=== PATIENT | male | born 1980 | race Caucasian/White ===

== ENCOUNTER → 2021-01-07 14:36 | Outpatient (CLI) | payer OTHER, SELFPAY ==
[2021-01-07 15:29] LABS: Absolute Neutrophil Count 6.9 X10^3/uL (2.0-7.7); Basophil# 0.03 X10^3/uL; Basophil% 0.3 % (0-1); Eosinophil# 0.17 X10^3/uL; Eosinophils% 1.6 % (0-5); Hematocrit 45.9 % (40-54); Hemoglobin 14.9 g/dL (13.0-16.5); Lymphocyte % 24.7 % (19-41); Mean Corp Hgb Conc 32.5 g/dL (32-36); Mean Corpuscular Hgb 30.2 pg (27.0-32.0); Mean Corpuscular Volume 93.1 fL (80-94); Mean Platelet Vol. 12.8 fl (6.2-12.0); Monocyte% 9.1 % (0-10); NRBC Flagged by Analyzer 0 % (0-5); Neutrophil # 6.94 X10^3/uL (2.7-7.7); Neutrophil % 63.4 % (47-70); Platelet Count 230 K/mm3 (150-450); RBC Distribution Width CV 13.2 % (11.6-14.6); RBC Distribution Width SD 45.2 fl (35.1-43.9); Red Blood Count 4.93 M/mm3 (4.6-6.2); White Blood Count 10.9 K/mm3 (4.4-11.0)
[2021-01-07 15:54] LABS: ALB/GLOB Ratio 0.9 RATIO (0.9-2.4); AST(SGOT) 19 U/L (15-37); Alanine Aminotransfer ALT/SGPT 35 U/L (16-61); Albumin, Serum 3.5 g/dL (3.2-5.0); Alkaline Phosphatase 86 U/L (45-117); Anion Gap 7 (5-15); BUN 12 mg/dL (7-18); BUN/Creat Ratio 12.7 RATIO (10-20); Calcium,Total 8.7 mg/dL (8.5-10.1); Chloride 104 mmol/L (98-107); Creatinine, Serum 0.94 mg/dL (0.70-1.30); EST Glomerular Filtration Rate 93 mL/min (>60); Est Glom Filt Rate - Afr Amer 113 mL/min (>60); Globulin 4.1 g/dL (2.2-4.2); Glucose 98 mg/dL (74-106); Potassium 3.9 mmol/L (3.5-5.1); Protein, Total 7.6 g/dL (6.4-8.2); Sodium Level 137 mmol/L (136-145); Thyroid Stim Hormone (TSH) 4.08 uIU/mL (0.358-3.74)
== END ==
PROVIDERS: PCP Family Medicine; Visit Provider Family Medicine
DX: R60.0 Localized edema (principal); R19.7 Diarrhea, unspecified; J45.909 Unspecified asthma, uncomplicated
CPT/HCPCS: 36415; 80053; 84443; 85025

== ENCOUNTER 2021-07-23 05:26 | Emergency (ER) | payer OTHER, SELFPAY ==
[2021-07-23 05:29] VITALS: BP 157/94; PULSE 92; RESP 24; TEMP 36.2; O2SAT 98; BMI 53.1
--- NOTE | 2021-07-23 05:42 | CT_ITS ---
EXAM: CT Lumbar Spine Without Intravenous Contrast CLINICAL INDICATION: 41 years old, Male; fall TECHNIQUE: Helically acquired images were obtained of the lumbar spine without intravenous contrast. 2D reformats were reviewed. This CT exam was performed using one or more of the following dose reduction techniques: automated exposure control, adjustment of the mA and/or kV according to patient size, and/or use of iterative reconstruction technique. This report was created using [employer] report generation technology. COMPARISON: None. FINDINGS: Vertebrae: Unremarkable. No fracture. No traumatic subluxation. No discrete lytic or blastic abnormality. Normal alignment. Discs/spinal canal/neural foramina: Unremarkable. Disc heights are preserved. No critical stenosis. Vasculature: Visualized abdominal aorta is not dilated. Lymph nodes: Unremarkable. No retroperitoneal adenopathy. CT/Spine Lumbar without Contrast IMPRESSION: No evidence of acute lumbar spinal fracture or spondylolisthesis. ASSESSMENT: NEGATIVE report - No abnormal findings. Electronically Signed: Minh Alvares MD at 7:00 EDT Tel , Service support ,
--- NOTE | 2021-07-23 05:42 | EX.ED.GENINJ ---
HPI History of Present Illness Chief Complaint: Back Informant: patient Onset/Context/Timing Onset: Today Mechanism/Context: Fall (Fall down 6 steps) Location: Lower back Current Severity: Moderate Maximum Severity: Moderate Associated Symptoms Associated Symptoms: Positive for Parasthesias (Mild tingling to right leg) Narrative Narrative: Patient presents secondary to low back pain after falling down steps this morning. He was getting ready for work. He went down the steps and his feet slipped out from underneath him. He went down approximately 6 steps on his back. Patient does report some pain going down his right leg with mild tingling. He reports back problems years ago that were fixed with physical therapy. He never required injections or surgeries. He is not on anticoagulants. [facility] Medical History Depression Hypothyroidism Home Medications bupropion HCl 150 mg PO DAILY 07/23/21 [History Last Taken Unknown] cyclobenzaprine 10 mg PO BID PRN #10 tab 07/23/21 [Rx Last Taken Unknown] escitalopram oxalate 20 mg PO QHS 07/23/21 [History Last Taken Unknown] levothyroxine 75 mcg PO DAILY 07/23/21 [History Last Taken Unknown] oxycodone-acetaminophen [Percocet] 1 tab PO Q6H PRN 3 Days #10 tab 07/23/21 [Rx Last Taken Unknown] Allergy/AdvReac Type Severity Reaction Status Date / Time ibuprofen AdvReac Other Verified 07/23/21 05:27 Surgical History H/O rotator cuff surgery Social History Smoking Status: Current every day smoker tobacco type: cigarettes ROS ROS ED Constitutional Constitutional ED: Denies chills or fever(s) Eyes Eyes: Denies change in vision ENT ENT ED: Denies sore throat Cardiovascular Cardiovascular: Denies chest pain Respiratory/Chest Respiratory/Chest: Denies cough or dyspnea Gastrointestinal Gastrointestinal: Denies abdominal pain, diarrhea, nausea or vomiting Genitourinary Genitourinary ED: Denies dysuria Musculoskeletal Musculoskeletal: Reports back pain Integumentary Denies rash Neurologic Neurologic: Reports paresthesias; Denies headache(s) or weakness Allergic/Immunologic Allergic/Immunologic ED: Denies urticaria EXAM Physical Exam Const Vital Signs: 07/23/21 05:29 Temperature 97.2 F L Temperature Source Temporal Pulse Rate 92 Respiratory Rate 24 H Blood Pressure 157/94 H Blood Pressure Mean 115 Pulse Ox 98 Oxygen Delivery Method Room Air Positive well nourished and well developed General Appearance ED: well developed Eyes EOMs intact bilaterally Chest Wall inspection of chest normal and palpation of chest normal Resp normal respiratory effort and clear to auscultation bilaterally Cardio regular rhythm Rate: regular rate GI normal to inspection, nondistended, normoactive bowel sounds Back/Spine Back/Spine Narrative: Tenderness of patient in the low lumbar region and over the right low lumbar paraspinals. Extremity Extremity Narrative: Strong distal pulses with normal sensation on testing. No focal neurologic deficits. Neuro oriented x3 Sensorium / Orientation: alert Skin no rashes or lesions noted MDM MDM MDM Narrative Medical decision making narrative: Patient was given oxycodone for pain. CT scan of the lumbar spine obtained. Radiography Diagnostic Testing: Radiology Impression Lumbar Spine CT 07/23/21 05:42 IMPRESSION: No evidence of acute lumbar spinal fracture or spondylolisthesis. ASSESSMENT: NEGATIVE report - No abnormal findings. Electronically Signed: Minh Alvares MD at 7:00 EDT Tel , Service support , Treatment and Re-Evaluation Comments:: CT reveals no evidence of fracture or subluxation. Patient be given prescription for Percocet and Flexeril. He has an allergy to NSAIDs which cause his kidneys to shut down. Patient did have interest in receiving Covid vaccine while here. First dose of Pfizer given in the emergency room. Discharge Plan Triage Chief Complaint: Back ED Provider: Betsy Thorpe Dx/Rx/DC Orders Clinical Impression: Back contusion, Sprain of low back Instructions: ED Back Sprain/Strain, ED Back Contusion Prescriptions: New oxycodone-acetaminophen [Percocet] 5-325 mg tablet 1 tab PO Q6H PRN (Reason: pain) 3 Days Qty: 10 RF: 0 cyclobenzaprine 10 mg tablet 10 mg PO BID PRN (Reason: muscle spasm) Qty: 10 RF: 0 No Action bupropion HCl 150 mg tablet sustained-release 12 hr 150 mg PO DAILY RF: 0 levothyroxine 75 mcg tablet 75 mcg PO DAILY RF: 0 escitalopram oxalate 20 mg tablet 20 mg PO QHS RF: 0 Stand Alone Forms: ED Work / School Excuse Primary Care Provider: Alisha Elaine Referrals: Alisha Elaine MD [Primary Care Provider] - 1 Week if not improving Disposition Disposition: Home, Self Care
[2021-07-23] MEDS: oxyCODONE 5 MG Tablet 10 MG PO (06:09)
[2021-07-23] MEDS: COVID-19 VACC, MRNA(PFIZER)/PF 30 MCG/0.3 ML SYRINGE IM (08:14)
[2021-07-23 08:27] VITALS: PULSE 88; RESP 18; O2SAT 97
== END 2021-07-23 08:28 | disposition home or self-care (01) ==
PROVIDERS: Emergency Provider Emergency Medicine; PCP Family Medicine
DX: S30.0XXA Contusion of lower back and pelvis, initial encounter (principal); S33.9XXA Sprain of unspecified parts of lumbar spine and pelvis, initial encounter; W10.9XXA Fall (on) (from) unspecified stairs and steps, initial encounter; E03.9 Hypothyroidism, unspecified; F32.9 Major depressive disorder, single episode, unspecified; F17.210 Nicotine dependence, cigarettes, uncomplicated; Z79.1 Long term (current) use of non-steroidal anti-inflammatories (NSAID); Z79.899 Other long term (current) drug therapy; Z88.6 Allergy status to analgesic agent; Z23 Encounter for immunization
CPT/HCPCS: 72131; 91300; 99283

== ENCOUNTER 2021-08-25 18:20 | Emergency (ER) | payer OTHER, SELFPAY ==
[2021-08-25 18:21] VITALS: BP 141/100; PULSE 96; RESP 18; TEMP 36.1; O2SAT 96; BMI 48.6
--- NOTE | 2021-08-25 18:31 | ED.RN ---
pt had previously been prescribed muscle relaxer and anti imflamatory, worked until pt went back to work. now medications not working.
--- NOTE | 2021-08-25 18:46 | ED.VIS.BACK ---
HPI History of Present Illness Chief Complaint: Back Narrative Narrative: Patient presented with lower back pain. He states that this initially started hurting him about a month ago when he fell. He was seen at [place] [facility] and had a CT scan of his back which was normal. He was discharged home with Flexeril, Percocet. He takes meloxicam on a regular basis already. He has an allergy to ibuprofen but not other NSAIDs that he knows of. Patient denies any loss of bladder or bowel control. He denies urinary tension. He states is difficult to ambulate secondary to pain. He states he initially started to get better and then went back to work and does a lot of bending and that is when he noted that his back started to hurt again. [facility] Medical History Depression Hypothyroidism Home Medications bupropion HCl 150 mg PO DAILY 07/23/21 [History Last Taken Unknown] cyclobenzaprine 10 mg PO BID PRN #10 tab 07/23/21 [Rx Last Taken Unknown] escitalopram oxalate 20 mg PO QHS 07/23/21 [History Last Taken Unknown] levothyroxine 75 mcg PO DAILY 07/23/21 [History Last Taken Unknown] oxycodone-acetaminophen [Percocet] 1 tab PO Q6H PRN 3 Days #10 tab 07/23/21 [Rx Last Taken Unknown] Allergy/AdvReac Type Severity Reaction Status Date / Time ibuprofen AdvReac Other Verified 08/25/21 18:23 Surgical History H/O rotator cuff surgery Social History Smoking Status: Current every day smoker tobacco type: cigarettes ROS ROS ED Constitutional Constitutional ED: Denies chills, fever(s) or sweats Eyes Eyes: Denies blurry vision or change in vision ENT ENT ED: Denies ear pain or sore throat Cardiovascular Cardiovascular: Denies chest pain, palpitations or racing heartbeat Respiratory/Chest Respiratory/Chest: Denies cough, dyspnea or sputum Gastrointestinal Gastrointestinal: Denies abdominal pain, constipation, diarrhea, nausea or vomiting Genitourinary Genitourinary ED: Denies dysuria, hematuria or urinary frequency Musculoskeletal Musculoskeletal: Reports back pain; Denies arthralgias, myalgias or neck pain Integumentary Denies abscess, Abrasions or rash Neurologic Neurologic: Denies headache(s), paresthesias or weakness Psychiatric Psychiatric: Denies anxiety, depression, suicidal ideation or suicidal thoughts Endocrine Endocrinology: Denies polydipsia or polyuria EXAM Physical Exam Const Vital Signs: 08/25/21 18:21 Temperature 96.9 F L Temperature Source Temporal Pulse Rate 96 Respiratory Rate 18 Blood Pressure 141/100 H Blood Pressure Mean 113 Pulse Ox 96 Oxygen Delivery Method Room Air Positive obese General Appearance ED: NAD; Negative for pallor Nutritional Appearance: obese HEENT Reports moist mucous membranes Negative for trauma Eyes PERRL and EOMs intact bilaterally Back/Spine Back/Spine Narrative: Right lumbar paraspinal muscular tenderness. No midline spinal tenderness or deformity. Extremity normal to inspection General Extremety ED: Negative for edema or tenderness General Extremity: Negative for edema Neuro oriented x3 Sensorium / Orientation: alert Psych mental status grossly normal Skin no rashes or lesions noted General Skin Exam: Negative for jaundice or pallor MDM MDM MDM Narrative Medical decision making narrative: Patient requesting a shot of Toradol which will be provided. I will also give him a burst of prednisone to help with his back. He has muscle relaxers already. He is also on meloxicam. He does not have any signs or symptoms of cauda equina syndrome. I do not believe he needs repeat imaging as he has not had any new trauma. I encouraged him to follow-up with his primary care physician so that he get into physical therapy and see if this helps him. Patient will be discharged home in stable condition. Impression: 1. Lumbar strain Discharge Plan Triage Chief Complaint: Back ED Provider: Flavio Levine Dx/Rx/DC Orders Prescriptions: No Action bupropion HCl 150 mg tablet sustained-release 12 hr 150 mg PO DAILY RF: 0 levothyroxine 75 mcg tablet 75 mcg PO DAILY RF: 0 escitalopram oxalate 20 mg tablet 20 mg PO QHS RF: 0 oxycodone-acetaminophen [Percocet] 5-325 mg tablet 1 tab PO Q6H PRN (Reason: pain) 3 Days Qty: 10 RF: 0 cyclobenzaprine 10 mg tablet 10 mg PO BID PRN (Reason: muscle spasm) Qty: 10 RF: 0 Primary Care Provider: Alisha Elaine
[2021-08-25] MEDS: predniSONE 20 MG Tablet 60 MG PO (18:55)
[2021-08-25] MEDS: Ketorolac 15 MG/ML Vial IM (18:56)
== END 2021-08-25 20:53 | disposition home or self-care (01) ==
LOC: ED 18:55
PROVIDERS: Emergency Provider Student in an Organized Health Care Education/Training Program; PCP Family Medicine
DX: S39.012A Strain of muscle, fascia and tendon of lower back, initial encounter (principal); X50.1XXA Overexertion from prolonged static or awkward postures, initial encounter; Y92.9 Unspecified place or not applicable; Y99.9 Unspecified external cause status; Z88.6 Allergy status to analgesic agent; E03.9 Hypothyroidism, unspecified; F17.210 Nicotine dependence, cigarettes, uncomplicated; F32.9 Major depressive disorder, single episode, unspecified; Z79.1 Long term (current) use of non-steroidal anti-inflammatories (NSAID); Z91.81 History of falling
CPT/HCPCS: 96372; 99283

== ENCOUNTER 2022-06-23 08:40 | Emergency (ER) | payer OTHER, SELFPAY ==
[2022-06-23 08:43] VITALS: BP 156/105; PULSE 78; RESP 17; TEMP 35.9; O2SAT 99; BMI 64.7
--- NOTE | 2022-06-23 08:49 | NURSING ---
NO OLD EKGS
--- NOTE | 2022-06-23 09:06 | EKG12_ITS ---
Test Reason : CP Blood Pressure : / mmHG Vent. Rate : 077 BPM Atrial Rate : 077 BPM P-R Int : 156 ms QRS Dur : 098 ms QT Int : 400 ms P-R-T Axes : 020 -15 028 degrees QTc Int : 452 ms Normal sinus rhythm Normal ECG Confirmed by NADIA JOHNSON, LUIS MIGUEL ([id number]), film editor ANGIE MANNING ([id number]) on 06/27/2022 9:26:50 AM Referred By: AGUSTÍN Confirmed By:GIGI ZUNIGA MD
--- NOTE | 2022-06-23 09:06 | RAD_ITS ---
STUDY: X-RAY CHEST REASON FOR EXAM: Male, 42 years old. Chest pain TECHNIQUE: Single AP portable view of the chest. COMPARISON: None. FINDINGS: EKG electrodes are seen. The lungs are clear and expanded. There is no demonstrated pleural abnormality. Normal size heart. Normal mediastinum and brandy. Normal visualized pulmonary arteries. Normal visualized aortic arch and descending thoracic aorta. Normal visualized thoracic spine. Normal visualized ribs, clavicles, and shoulders. There is no demonstrated abnormality of the visualized soft tissue structures of the upper abdomen. RAD/Chest 1 View (Portable) IMPRESSION: Normal x-ray examination of the chest. Electronically Signed: Guy Olmedo MD at 9:46 EDT ,
--- NOTE | 2022-06-23 09:07 | ED.VIS.CHEST ---
HPI History of Present Illness Chief Complaint: Back Narrative Narrative: 42-year-old male presenting with chest pain and upper back pain. He states that last evening he was drying himself off with a towel and felt a pop behind his left shoulder. He states that it initially hurt just in the left shoulder blade area but when he woke up this morning he had pain that radiated up into the anterior chest and down his arm. He states he has some numbness in his left arm which is not new and he always has this. He took Flexeril last night without relief. He took Tylenol at home but cannot take ibuprofen due to allergies. He states that shot sounds in his kidney. He states he is not short of breath or lightheaded but he does notice that the pain increases in the left scapular region when he takes a deep breath. He does not have any history of DVT/PE and does not have any current risk factors. He denies any cardiac history. [facility] Medical History Depression Hypothyroidism Home Medications bupropion HCl 150 mg tablet,12 hr sustained-release 150 mg PO DAILY 07/23/21 [History Last Taken Unknown] cyclobenzaprine 10 mg tablet 10 mg PO BID PRN muscle spasm #10 tabs 07/23/21 [Rx Last Taken Unknown] escitalopram oxalate 20 mg tablet 20 mg PO QHS 07/23/21 [History Last Taken Unknown] levothyroxine 75 mcg tablet 75 mcg PO DAILY 07/23/21 [History Last Taken Unknown] albuterol sulfate 90 mcg/actuation aerosol inhaler 1 - 2 puff inhalation Q4H PRN sob 06/23/22 [History Last Taken Unknown] gabapentin 300 mg capsule 300 mg PO TID PRN Pain 06/23/22 [History Last Taken Unknown] tizanidine 4 mg capsule (Zanaflex) 4 mg PO Q8H PRN muscle spasticity #20 caps 06/23/22 [Rx Last Taken Unknown] Allergy/AdvReac Type Severity Reaction Status Date / Time ibuprofen AdvReac Other Verified 06/23/22 08:41 Surgical History H/O rotator cuff surgery Social History Smoking Status: Current every day smoker tobacco type: cigarettes ROS ROS ED Constitutional Constitutional ED: Denies chills or fever(s) Eyes Eyes: Denies change in vision ENT ENT ED: Denies rhinorrhea or sore throat Cardiovascular Cardiovascular: Reports as per HPI Respiratory/Chest Respiratory/Chest: Denies cough or dyspnea Gastrointestinal Gastrointestinal: Denies abdominal pain or constipation Genitourinary Genitourinary ED: Denies dysuria or hematuria Musculoskeletal Musculoskeletal: Reports back pain Integumentary Denies abscess Neurologic Neurologic: Denies headache(s) Psychiatric Psychiatric: Denies anxiety or depression EXAM Physical Exam Const Vital Signs: 06/23/22 08:43 06/23/22 08:52 06/23/22 09:29 Temperature 96.7 F L Temperature Source Temporal Pulse Rate 78 Respiratory Rate 17 Respiratory Pattern Normal Blood Pressure 156/105 H Blood Pressure Mean 122 Pulse Ox 99 Oxygen Delivery Method Room Air Room Air Positive well nourished and obese General Appearance ED: NAD Nutritional Appearance: obese HEENT Reports moist mucous membranes Eyes PERRL and EOMs intact bilaterally Resp normal respiratory effort and clear to auscultation bilaterally Cardio regular rate and regular rhythm GI normal to inspection, nondistended, normoactive bowel sounds Back/Spine no CVA tenderness Back/Spine Narrative: tenderness to palpation the left medal scapular region. No thoracic spinal tenderness. Left shoulder nontender. Neuro oriented x3 and CN's II-XII intact bilaterally Sensorium / Orientation: awake Psych mental status grossly normal Skin no rashes or lesions noted Heart Score History: Slightly/Non-Suspicious ECG: Normal Age: </= 45 years Risk Factors: No Risk Factors Troponin: </= Normal Limit Score: 0 MDM MDM MDM Narrative Medical decision making narrative: 42-year-old male presenting with atypical chest pain. This really started in the left scapular region and radiated around last night. This started when he was drying himself off with a towel and he felt a pop. On physical exam is reproducible in the medial scapular area. Since it is now in his chest he does have concern for cardiac related chest pain. He had pain all night long and his EKG is normal sinus rhythm with a ventricular rate of 77 bpm without sign of ischemic change interpretation. Chest x-ray on my interpretation shows no acute cardiopulmonary process and the radiologist agree. CBC and BMP are unremarkable. High-sensitivity troponin is 7 after over 12 hours of pain and I do not think he needs a delta troponin. He is PERC negative. Patient was treated with Toradol and Norflex in ED. He will be given a prescription for muscle relaxers for home. He will follow-up with his primary care physician as needed and return precautions were discussed. Impression: 1. Thoracic strain 2. Atypical chest pain Lab Data Attestation: I reviewed the patient's lab results. Labs: Laboratory Results - last 24 hr 06/23/22 06/23/22 09:14 09:14 WBC 6.4 RBC 4.53 L Hgb 14.5 Hct 42.7 MCV 94.3 H MCH 32.0 MCHC 34.0 RDW Std Deviation 47.3 H RDW Coeff of Donnie 13.6 Plt Count 207 MPV 12.7 H Immature Gran % (Auto) 0.300 Neut % (Auto) 58.5 Lymph % (Auto) 29.4 [place] % (Auto) 9.0 Eos % (Auto) 2.5 Baso % (Auto) 0.3 Absolute Neuts (auto) 3.8 Absolute Lymphs (auto) 1.89 Nucleated RBC % 0 Sodium 140 Potassium 4.0 Chloride 109 H Carbon Dioxide 28.0 Anion Gap 3 L BUN 10 Creatinine 0.95 Estim Creat Clear Calc 93.74 Est GFR (MDRD) Af Amer 112 Est GFR (MDRD) Non-Af 92 BUN/Creatinine Ratio 10.6 Glucose 104 Calcium 8.2 L Troponin I High Sens 7 Radiography Diagnostic Testing: Clinical Impression(s) from Imaging Studies Chest X-Ray 06/23/22 09:06 IMPRESSION: Normal x-ray examination of the chest. Electronically Signed: Guy Olmedo MD at 9:46 EDT , Discharge Plan Triage Chief Complaint: Back ED Provider: Flavio Levine Dx/Rx/DC Orders Instructions: ED Chest Pain, Noncardiac, ED Thoracic Spine Strain Prescriptions: New tizanidine [Zanaflex] 4 mg capsule 4 mg PO Q8H PRN (Reason: muscle spasticity) Qty: 20 0RF No Action bupropion HCl 150 mg tablet sustained-release 12 hr 150 mg PO DAILY levothyroxine 75 mcg tablet 75 mcg PO DAILY escitalopram oxalate 20 mg tablet 20 mg PO QHS cyclobenzaprine 10 mg tablet 10 mg PO BID PRN (Reason: muscle spasm) Qty: 10 0RF gabapentin 300 mg capsule 300 mg PO TID PRN (Reason: Pain) Label Comments: TAKE 1 CAPSULE BY MOUTH THREE TIMES DAILY NEEDED FOR BACK PAIN albuterol sulfate 90 mcg/actuation HFA aerosol inhaler 1 - 2 puff INHALATION Q4H PRN (Reason: sob) Primary Care Provider: Alisha Elaine Referrals: Alisha Elaine MD [Primary Care Provider] - Disposition Disposition: Home, Self Care
[2022-06-23] MEDS: Ketorolac 15 MG/ML Vial IV (09:21)
[2022-06-23] MEDS: Orphenadrine 60 MG/2 ML Ampul IM (09:23)
[2022-06-23 09:28] LABS: Absolute Lymphocyte Count 1.89 X10^3/uL (0.83-4.51); Absolute Neutrophil Count 3.8 X10^3/uL (2.0-7.7); Basophil# 0.02 X10^3/uL; Basophil% 0.3 % (0-1); Eosinophil# 0.16 X10^3/uL; Eosinophils% 2.5 % (0-5); Hematocrit 42.7 % (40-54); Hemoglobin 14.5 g/dL (13.0-16.5); Lymphocyte # 1.89 X10^3/ul (0.83-4.51); Lymphocyte % 29.4 % (19-41); Mean Corpuscular Volume 94.3 fL (80-94); Mean Platelet Vol. 12.7 fl (6.2-12.0); Monocyte# 0.58 X10^3/uL; NRBC Flagged by Analyzer 0 % (0-5); Neutrophil # 3.75 X10^3/uL (2.7-7.7); Neutrophil % 58.5 % (47-70); Platelet Count 207 K/mm3 (150-450); RBC Distribution Width CV 13.6 % (11.6-14.6); RBC Distribution Width SD 47.3 fl (35.1-43.9); Red Blood Count 4.53 M/mm3 (4.6-6.2); White Blood Count 6.4 K/mm3 (4.4-11.0)
[2022-06-23 09:42] LABS: Anion Gap 3 (5-15); BUN 10 mg/dL (7-18); BUN/Creat Ratio 10.6 RATIO (10-20); Calcium,Total 8.2 mg/dL (8.5-10.1); Chloride 109 mmol/L (98-107); Creatinine, Serum 0.95 mg/dL (0.70-1.30); EST Glomerular Filtration Rate 92 mL/min (>60); Est Glom Filt Rate - Afr Amer 112 mL/min (>60); Estimated Creatinine Clearance 93.74 ml/min; Glucose 104 mg/dL (74-106); Sodium Level 140 mmol/L (136-145); Troponin-I HS (w/2H Reflex) 7 pg/mL (3.0-78.0)
[2022-06-23 11:19] LABS: Reflex Troponin-HS? (from REC) Y
== END 2022-06-23 10:20 | disposition home or self-care (01) ==
PROVIDERS: Emergency Provider Student in an Organized Health Care Education/Training Program; PCP Family Medicine; Visit Provider Student in an Organized Health Care Education/Training Program
DX: R07.89 Other chest pain (principal); I82.409 Acute embolism and thrombosis of unspecified deep veins of unspecified lower extremity; S29.019A Strain of muscle and tendon of unspecified wall of thorax, initial encounter; M25.512 Pain in left shoulder; M54.9 Dorsalgia, unspecified; F17.210 Nicotine dependence, cigarettes, uncomplicated; F32.A Depression, unspecified; E03.9 Hypothyroidism, unspecified
CPT/HCPCS: 71045; 80048; 84484; 85025; 93005; 99283; A4216

== ENCOUNTER 2022-10-06 10:04 | Emergency (ER) | payer OTHER, SELFPAY ==
[2022-10-06 10:05] VITALS: BP 182/151; PULSE 71; RESP 18; TEMP 35.6; O2SAT 97; BMI 47.0
[2022-10-06 10:54] LABS: Absolute Lymphocyte Count 1.74 X10^3/uL (0.83-4.51); Absolute Neutrophil Count 3.8 X10^3/uL (2.0-7.7); Basophil# 0.03 X10^3/uL; Basophil% 0.5 % (0-1); Eosinophil# 0.18 X10^3/uL; Eosinophils% 2.8 % (0-5); Hematocrit 41.5 % (40-54); Hemoglobin 13.7 g/dL (13.0-16.5); Lymphocyte # 1.74 X10^3/ul (0.83-4.51); Lymphocyte % 27.2 % (19-41); Mean Corpuscular Hgb 30.4 pg (27.0-32.0); Mean Corpuscular Volume 92.2 fL (80-94); Mean Platelet Vol. 13.4 fl (6.2-12.0); Monocyte# 0.64 X10^3/uL; NRBC Flagged by Analyzer 0 % (0-5); Neutrophil # 3.78 X10^3/uL (2.7-7.7); Neutrophil % 59.2 % (47-70); Platelet Count 170 K/mm3 (150-450); RBC Distribution Width CV 14.1 % (11.6-14.6); RBC Distribution Width SD 47.9 fl (35.1-43.9); White Blood Count 6.4 K/mm3 (4.4-11.0)
[2022-10-06 11:07] LABS: AST(SGOT) 17 U/L (15-37); Alanine Aminotransfer ALT/SGPT 34 U/L (16-61); Albumin, Serum 3.2 g/dL (3.2-5.0); Alkaline Phosphatase 84 U/L (45-117); Anion Gap 4 (5-15); BUN 14 mg/dL (7-18); BUN/Creat Ratio 16.7 RATIO (10-20); Bilirubin, Direct 0.08 mg/dL (0.00-0.30); Calcium,Total 8.4 mg/dL (8.5-10.1); Chloride 110 mmol/L (98-107); Creatinine, Serum 0.84 mg/dL (0.70-1.30); EST Glomerular Filtration Rate 106 mL/min (>60); Est Glom Filt Rate - Afr Amer 128 mL/min (>60); Estimated Creatinine Clearance 106.01 ml/min; Globulin 3.7 g/dL (2.2-4.2); Glucose 93 mg/dL (74-106); Lipase 345 U/L (73-393); Protein, Total 6.9 g/dL (6.4-8.2); Sodium Level 141 mmol/L (136-145)
--- NOTE | 2022-10-06 11:47 | CT_ITS ---
STUDY: CTA CHEST AND CTA ABDOMEN/PELVIS WITH CONTRAST REASON FOR EXAM: Male, 42 years old. Chest pain and abdominal pain with vomiting. RADIATION DOSAGE (If Supplied By Facility): CTDIvol = ( 31.00 ) mGy, DLP = ( 2135.28 ) mGycm TECHNIQUE: The examination was performed with the intravenous administration of IV 100mL Isovue-370. Post-processing of the angiographic images was performed, with multiplanar reformation and 3D reconstruction. Individualized dose optimization techniques were used for this CT. COMPARISON: No relevant priors. FINDINGS: CTA Chest Small benign-appearing bilateral axillary Normal enhancement of the main pulmonary artery and right and left pulmonary arteries. Normal enhancement of the bilateral peripheral pulmonary arteries. There is no demonstrated pulmonary embolism. Normal thoracic aorta and visualized great vessels. There is no demonstrated aortic dissection. There are calcifications of the coronary arteries. Normal mediastinum. Normal hilar regions. Normal visualized trachea and bronchi. The lungs are well expanded. Normal pulmonary parenchyma. Normal pleura. Normal chest wall structures. Normal osseous structures. Normal visualized upper abdomen. CTA Abdomen T Pelvis There is decreased attenuation of the liver consistent with steatosis. Mild hepatomegaly. Normal gallbladder and extrahepatic biliary system. Normal spleen. Normal pancreas. Normal bilateral adrenal glands. Normal right kidney. Normal left kidney. Normal visualized stomach. Normal small intestine. Normal colon. The appendix is visualized and appears normal. Normal abdominal aorta. Normal inferior vena cava. Normal retroperitoneum. Normal urinary bladder. Normal abdominal wall. Normal osseous structures. CT/CTA Chst, Abd, Pel W and/or WO IMPRESSION: Diffuse fatty infiltration of the liver. Electronically Signed: Guy Olmedo MD at 13:31 EST ,
--- NOTE | 2022-10-06 11:47 | EKG12_ITS ---
Test Reason : ABD PAIN Blood Pressure : / mmHG Vent. Rate : 062 BPM Atrial Rate : 062 BPM P-R Int : 150 ms QRS Dur : 098 ms QT Int : 442 ms P-R-T Axes : 025 -10 018 degrees QTc Int : 448 ms Normal sinus rhythm Normal ECG Confirmed by NADIA JOHNSON, LUIS MIGUEL ([id number]), book editor ANGIE MANNING ([id number]) on 10/11/2022 10:36:14 AM Referred By: Confirmed By:GIGI ZUNIGA MD
--- NOTE | 2022-10-06 11:48 | ED.VIS.GI ---
HPI HPI - GI History of Present Illness Chief Complaint: Abd Pain Narrative Narrative: 42-year-old male presenting with right-sided chest pain and epigastric pain which radiates to his back. He states this started when he woke up this morning. His last meal was last evening and he ate [employer]. He states he has a history of asthma and feels a little bit short of breath but does not feel like he is wheezing. He states when he woke up he began vomiting. He has not had a fever or cough. Patient denies cardiac history. He denies history of DVT and has no risk factors. He does have history of acid reflux. [facility] Medical History Depression Hypothyroidism Home Medications bupropion HCl 150 mg tablet,12 hr sustained-release 150 mg PO DAILY 07/23/21 [History Last Taken Unknown] cyclobenzaprine 10 mg tablet 10 mg PO BID PRN muscle spasm #10 tabs 07/23/21 [Rx Last Taken Unknown] escitalopram oxalate 20 mg tablet 20 mg PO QHS 07/23/21 [History Last Taken Unknown] levothyroxine 75 mcg tablet 75 mcg PO DAILY 07/23/21 [History Last Taken Unknown] albuterol sulfate 90 mcg/actuation aerosol inhaler 1 - 2 puff inhalation Q4H PRN sob 06/23/22 [History Last Taken Unknown] ondansetron 4 mg disintegrating tablet 4 mg PO Q8H PRN nausea and vomiting #14 tabs 10/06/22 [Rx Last Taken Unknown] Allergy/AdvReac Type Severity Reaction Status Date / Time ibuprofen AdvReac Other Verified 10/06/22 10:06 Surgical History H/O rotator cuff surgery Social History Smoking Status: Current every day smoker tobacco type: cigarettes ROS ROS ED Constitutional Constitutional ED: Denies chills or fever(s) ENT ENT ED: Denies rhinorrhea Cardiovascular Cardiovascular: Reports chest pain Respiratory/Chest Respiratory/Chest: Reports dyspnea; Denies cough Gastrointestinal Gastrointestinal: Reports abdominal pain, nausea and vomiting Genitourinary Genitourinary ED: Denies dysuria or hematuria Musculoskeletal Musculoskeletal: Denies arthralgias Neurologic Neurologic: Denies headache(s) or paresthesias Psychiatric Psychiatric: Denies anxiety or depression Endocrine Endocrinology: Denies polydipsia or polyphagia EXAM Physical Exam Const Vital Signs: 10/06/22 10:05 10/06/22 12:04 10/06/22 14:00 Temperature 96.1 F L Temperature Source Temporal Pulse Rate 71 66 78 Respiratory Rate 18 18 16 Blood Pressure 182/151 H 140/78 H 142/64 H Blood Pressure Mean 161 98 90 Pulse Ox 97 98 98 Oxygen Delivery Method Room Air Room Air Room Air Positive well nourished General Appearance ED: NAD; Negative for pallor HEENT Reports TM's clear and moist mucous membranes normocephalic and atraumatic Tympanic Membrane ED: Yes TM's clear Eyes PERRL and EOMs intact bilaterally Neck no lymphadenopathy Resp normal respiratory effort and clear to auscultation bilaterally Auscultation: Negative for rales, rhonchi or wheezes Cardio regular rate and regular rhythm GI GI Narrative: Epigastric tenderness Neuro CN's II-XII intact bilaterally, moves all extremities and no sensory deficits noted Sensorium / Orientation: alert Psych mental status grossly normal and thought process normal Skin no wounds General Skin Exam: Negative for jaundice or pallor MDM MDM MDM Narrative Medical decision making narrative: Patient presenting with chest pain and epigastric pain which is acute onset this morning. Is associate symptoms of nausea and vomiting. Last meal was last night. He is not tender in the right upper quadrant. His initial blood pressures were very elevated. Initial concern for dissection. Patient given IV morphine and Zofran. Cardiac work-up was started. EKG sinus rhythm at a ventricular rate of 60 bpm without sign of ischemic pain on my interpretation. CBC shows no elevated white blood cell count. Hemoglobin hematocrit are stable. Renal function and electrolytes are normal. LFTs within normal limits. Lipase is also normal. Urinalysis negative for infection. Initial high-sensitivity troponin is 3. CTA chest abdomen pelvis was obtained and does not show any aortic dissection, PE, infiltrate or other acute abdominal pathology. Patient feeling improved after morphine and Zofran. Obtain a delta troponin which is 7. There is no significant interval change therefore I feel the patient is stable for discharge. He is currently symptom-free. He was given a prescription for Zofran for home and return precautions were discussed. Impression: 1. Chest pain 2. Epigastric pain 3. Nausea/vomiting Lab Data Labs: Laboratory Results - last 24 hr 10/06/22 10/06/22 10/06/22 10:44 10:44 12:05 WBC 6.4 RBC 4.50 L Hgb 13.7 Hct 41.5 MCV 92.2 MCH 30.4 MCHC 33.0 RDW Std Deviation 47.9 H RDW Coeff of Donnie 14.1 Plt Count 170 MPV 13.4 H Immature Gran % (Auto) 0.300 Neut % (Auto) 59.2 Lymph % (Auto) 27.2 [place] % (Auto) 10.0 Eos % (Auto) 2.8 Baso % (Auto) 0.5 Absolute Neuts (auto) 3.8 Absolute Lymphs (auto) 1.74 Nucleated RBC % 0 Sodium 141 Potassium 4.0 Chloride 110 H Carbon Dioxide 27.0 Anion Gap 4 L BUN 14 Creatinine 0.84 Estim Creat Clear Calc 106.01 Est GFR (MDRD) Af Amer 128 Est GFR (MDRD) Non-Af 106 BUN/Creatinine Ratio 16.7 Glucose 93 Calcium 8.4 L Total Bilirubin 0.20 Direct Bilirubin 0.08 AST 17 ALT 34 Alkaline Phosphatase 84 Troponin I High Sens 3 Total Protein 6.9 Albumin 3.2 Globulin 3.7 Lipase 345 Urine Color Urine Clarity Urine pH Ur Specific [place] Urine Protein Urine Glucose (UA) Urine Ketones Urine Occult Blood Urine Nitrite Urine Bilirubin Urine Urobilinogen Ur Leukocyte Esterase Urine RBC Urine WBC Ur Squamous Epith Cells Urine Bacteria Urine Mucus 10/06/22 10/06/22 13:15 15:19 WBC RBC Hgb Hct MCV MCH MCHC RDW Std Deviation RDW Coeff of Donnie Plt Count MPV Immature Gran % (Auto) Neut % (Auto) Lymph % (Auto) [place] % (Auto) Eos % (Auto) Baso % (Auto) Absolute Neuts (auto) Absolute Lymphs (auto) Nucleated RBC % Sodium Potassium Chloride Carbon Dioxide Anion Gap BUN Creatinine Estim Creat Clear Calc Est GFR (MDRD) Af Amer Est GFR (MDRD) Non-Af BUN/Creatinine Ratio Glucose Calcium Total Bilirubin Direct Bilirubin AST ALT Alkaline Phosphatase Troponin I High Sens 7 Total Protein Albumin Globulin Lipase Urine Color Yellow Urine Clarity Sl. Cloudy Urine pH 5.0 Ur Specific [place] 1.020 Urine Protein Negative Urine Glucose (UA) Normal Urine Ketones Negative Urine Occult Blood Negative Urine Nitrite Negative Urine Bilirubin Negative Urine Urobilinogen Normal Ur Leukocyte Esterase Negative Urine RBC 0 SEEN Urine WBC 0-5 SEEN Ur Squamous Epith Cells 0-5 SEEN Urine Bacteria RARE Urine Mucus RARE Radiography Diagnostic Testing: Clinical Impression(s) from Imaging Studies Chest/Abdomen/Pelvis CTA 10/06/22 11:47 IMPRESSION: Diffuse fatty infiltration of the liver. Electronically Signed: Guy Olmedo MD at 13:31 EST , Discharge Plan Triage Chief Complaint: Abd Pain ED Provider: Flavio Levine Dx/Rx/DC Orders Instructions: ED Chest Pain, Noncardiac Prescriptions: New ondansetron 4 mg tablet,disintegrating 4 mg PO Q8H PRN (Reason: nausea and vomiting) Qty: 14 0RF No Action bupropion HCl 150 mg tablet sustained-release 12 hr 150 mg PO DAILY levothyroxine 75 mcg tablet 75 mcg PO DAILY escitalopram oxalate 20 mg tablet 20 mg PO QHS cyclobenzaprine 10 mg tablet 10 mg PO BID PRN (Reason: muscle spasm) Qty: 10 0RF albuterol sulfate 90 mcg/actuation HFA aerosol inhaler 1 - 2 puff INHALATION Q4H PRN (Reason: sob) Primary Care Provider: Alisha Elaine Referrals: Alisha Elaine MD [Primary Care Provider] - Disposition Disposition: Home, Self Care
[2022-10-06 12:04] VITALS: BP 140/78; PULSE 66; RESP 18; O2SAT 98
[2022-10-06] MEDS: Ondansetron 4 MG/2 ML Vial IV (12:18)
[2022-10-06] MEDS: Morphine 4 MG/ML Syringe IV (12:18)
[2022-10-06 12:37] LABS: Troponin-I HS 3 pg/mL (3.0-78.0)
[2022-10-06 13:25] LABS: Red Blood Cells-Urine 0 SEEN /hpf (0-5)
[2022-10-06 13:26] LABS: Color, Urine Yellow (Yellow); Glucose, Dipstick Normal (Normal); Ketone-Dipstick Negative (Negative); Leukocyte Esterase-Dipstick Negative /ul (Negative); Nitrite-Dipstick Negative (Negative); Occult Blood-Urine Negative /ul (Negative); Protein-Dipstick Negative (Negative); Urine Bilirubin Dipstick Negative (Negative); Urine Clarity Sl. Cloudy (Clear); Urine Urobilinogen Normal (Normal)
[2022-10-06 13:39] LABS: Bacteria RARE /hpf (None Seen); Mucous, Urine RARE /hpf (<or=2+); Squamous Epithelial Cells - UA 0-5 SEEN /hpf (0-5); White Blood Cells 0-5 SEEN /hpf (0-5)
[2022-10-06 14:00] VITALS: BP 142/64; PULSE 78; RESP 16; O2SAT 98
[2022-10-06 15:50] LABS: Troponin-I HS 7 pg/mL (3.0-78.0)
[2022-10-06 16:04] VITALS: BP 134/78; PULSE 74; RESP 16; O2SAT 98
== END 2022-10-06 16:18 | disposition home or self-care (01) ==
PROVIDERS: Emergency Provider Student in an Organized Health Care Education/Training Program; PCP Family Medicine; Visit Provider Student in an Organized Health Care Education/Training Program
DX: R07.9 Chest pain, unspecified (principal); R10.13 Epigastric pain; R11.2 Nausea with vomiting, unspecified; F17.210 Nicotine dependence, cigarettes, uncomplicated; R06.00 Dyspnea, unspecified
CPT/HCPCS: 71275; 74174; 80048; 80076; 81001; 83690; 84484; 85025; 93005; 96374; 96375; 99282; J7030; Q9967; A4216; J2405

== ENCOUNTER → 2023-09-06 | Outpatient (CLI) | payer OTHER, SELFPAY ==
[2023-09-06 12:18] LABS: Absolute Lymphocyte Count 2.17 X10^3/uL (0.83-4.51); Absolute Neutrophil Count 4.4 X10^3/uL (2.0-7.7); Basophil# 0.03 X10^3/uL; Basophil% 0.4 % (0-1); Eosinophil# 0.17 X10^3/uL; Eosinophils% 2.3 % (0-5); Hematocrit 47.2 % (40-54); Lymphocyte # 2.17 X10^3/ul (0.83-4.51); Lymphocyte % 29.4 % (19-41); Mean Corp Hgb Conc 31.8 g/dL (32-36); Mean Corpuscular Hgb 30.7 pg (27.0-32.0); Mean Corpuscular Volume 96.7 fL (80-94); Mean Platelet Vol. 13.6 fl (6.2-12.0); Monocyte# 0.59 X10^3/uL; NRBC Flagged by Analyzer 0 % (0-5); Neutrophil # 4.38 X10^3/uL (2.7-7.7); Neutrophil % 59.4 % (47-70); Platelet Count 191 K/mm3 (150-450); RBC Distribution Width CV 14.1 % (11.6-14.6); RBC Distribution Width SD 49.9 fl (35.1-43.9); Red Blood Count 4.88 M/mm3 (4.6-6.2); White Blood Count 7.4 K/mm3 (4.4-11.0)
[2023-09-06 12:32] LABS: ALB/GLOB Ratio 0.9 RATIO (0.9-2.4); AST(SGOT) 27 U/L (15-37); Alanine Aminotransfer ALT/SGPT 45 U/L (16-61); Albumin, Serum 3.5 g/dL (3.2-5.0); Alkaline Phosphatase 86 U/L (45-117); Anion Gap 3 (5-15); BUN 9 mg/dL (7-18); BUN/Creat Ratio 9.8 RATIO (10-20); Calcium,Total 8.5 mg/dL (8.5-10.1); Chloride 107 mmol/L (98-107); Cholesterol 139 mg/dL (200); Creatinine, Serum 0.91 mg/dL (0.70-1.30); EST Glomerular Filtration Rate 96 mL/min (>60); Est Glom Filt Rate - Afr Amer 116 mL/min (>60); Globulin 4.1 g/dL (2.2-4.2); Glucose 101 mg/dL (74-106); High Density Lipoprotein 43 mg/dL; Potassium 3.8 mmol/L (3.5-5.1); Protein, Total 7.6 g/dL (6.4-8.2); Sodium Level 140 mmol/L (136-145); Thyroid Stim Hormone (TSH) 2.24 uIU/mL (0.358-3.74); Triglycerides 118 mg/dL; Very Low Density Lipoprotein 24 mg/dL (5-40)
== END | disposition home or self-care (01) ==
LOC: BFHLAB 08:27
PROVIDERS: PCP Family Medicine; Visit Provider Family Medicine
DX: Z00.00 Encounter for general adult medical examination without abnormal findings (principal); E03.9 Hypothyroidism, unspecified; Z83.3 Family history of diabetes mellitus
CPT/HCPCS: 36415; 80053; 80061; 84443; 85025